=== PATIENT | male | born 1940 | race Caucasian/White ===

== ENCOUNTER 2020-08-07 10:37 | Emergency (ER) | payer OTHER ==
[~2020-08-07] VITALS: Ht 180.3 cm; Wt 131.5 kg
[~2020-08-07 10:37] MED LIST: B-121000 MCG PO; ECOTRIN325 MG PO; ECOTRIN81 MG; LEVAQUIN500 MG PO; LISINOPRIL10 MG PO; LOSARTAN POTASS25 MG; METFORMIN HCL500 MG PO; METOPROLOL TART25 MG PO; PEPCID20 MG PO; PRAVASTATIN SOD20 MG PO; PREDNISONE20 MG PO; PROPRANOLOL HCL40 MG PO; VITAMIN D1000 UNI1 PO; XARELTO20 MG PO
[2020-08-07 11:11] LABS: BASOPHILS # (AUTO) 0.1 (0.0-0.1); BASOPHILS % 0.5 % (0.0-1.0); EOSINOPHILS # (AUTO) 0.2 (0.0-0.4); EOSINOPHILS % 1.8 % (0.0-6.0); HEMATOCRIT 45.3 % (38.2-49.6); HEMOGLOBIN 15.2 g/dL (14.0-18.0); LYMPHOCYTES # (AUTO) 0.8 (1.0-3.2); LYMPHOCYTES % 7.9 % (18.0-39.1); MEAN CORPUSCULAR HEMOGLOBIN 30.5 pg (28-32); MEAN CORPUSCULAR HGB CONC 33.6 g/dL (31-35); MONOCYTES # (AUTO) 0.5 (0.2-0.8); MONOCYTES % 5.4 % (4.4-11.3); NEUTROPHILS # (AUTO) 8.2 (2.1-6.9); NEUTROPHILS % 84.1 % (38.7-80.0); PLATELET COUNT 138 x10e3/uL (140-360); RED BLOOD COUNT 4.98 x10e6/uL (4.3-5.7); RED CELL DISTRIBUTION WIDTH 17.3 % (11.7-14.4)
[2020-08-07 11:33] LABS: ALBUMIN 3.6 g/dL (3.5-5.0); ALBUMIN/GLOBULIN RATIO 1.1 (0.8-2.0); ANION GAP 16.1 mmol/L (8-16); CALCIUM 8.8 mg/dL (8.4-10.2); CREATININE, SERUM 1.17 mg/dL (0.72-1.25); POTASSIUM 4.1 mmol/L (3.5-5.1)
[2020-08-07 13:14] VITALS: BP 130/75
== END 2020-08-07 13:18 | disposition home or self-care (01) ==
LOC: ER 10:50
DX: R05 Cough (principal); I10 Essential (primary) hypertension; G20 Parkinson's disease; E11.9 Type 2 diabetes mellitus without complications; E78.5 Hyperlipidemia, unspecified; I48.91 Unspecified atrial fibrillation; R94.31 Abnormal electrocardiogram [ECG] [EKG]; Z11.59 Encounter for screening for other viral diseases
CPT/HCPCS: 36415; 71045; 80053; 82948; 84484; 85025; 87400; 93005; 99284; U0002